=== PATIENT | female | born 1985 | race Caucasian/White ===

== ENCOUNTER 2021-06-29 19:50 | Emergency (ER) | payer MEDICAID, SELFPAY ==
--- NOTE | 2021-06-29 19:34 | ECG_ITS ---
APPROVED REPORT Exam: Resting ECG HR:111 bpm ECG Measurements Heart Rate 111 AXES TX 199 P 56 QRSd 82 QRS 64 QT 314 T 71 QTc 380 Conclusion SINUS TACHYCARDIA LOW QRS VOLTAGE IN PRECORDIAL LEADS [QRS DEFLECTION < 1.0 mV IN CHEST LEADS] NONSPECIFIC T-WAVE ABNORMALITY ABNORMAL RHYTHM ECG UNCONFIRMED REPORT Electronically signed by : Stef Hong MD 07/01/2021 07:54:34
[2021-06-29 19:39] VITALS: BP 124/81; PULSE 113; RESP 20; TEMP 36.8; O2SAT 95; BMI 41.5
[2021-06-29 19:59] LABS: Microscopic, Urine URINE MICROSCOPIC (MICROSCOPIC)
[2021-06-29 20:00] VITALS: BP 113/79; PULSE 107; RESP 17; O2SAT 94
[2021-06-29 20:02] LABS: Appearance,Urine CLOUDY (Clear); Bilirubin,Urine Negative (Negative); Blood, Urine Negative (Negative); Color,Urine DK YELLOW (Yellow); Glucose,Urine (UA) Negative (Negative); Ketones,Urine Negative (Negative); Leukocyte Esterase,Urine 1+ (Negative); Nitrate,Urine POSITIVE (Negative); PH,Urine 5.5 (5.0-8.5); Protein,Urine Negative (Negative); Specific Gravity, Urine >= 1.030 (1.005-1.030)
[2021-06-29 20:05] VITALS: BMI 46.5
[2021-06-29 20:12] LABS: Amphetamine/Metha Screen,Urine Negative ng/ml (<1000)
[2021-06-29 20:13] LABS: Barbiturates Screen,Urine Negative ng/ml (<200)
[2021-06-29 20:14] LABS: Benzodiazepines Screen,Urine Negative ng/ml (<200); Cannabinoid Screen,Urine Negative ng/ml (<50)
[2021-06-29 20:15] LABS: Cocaine Screen,Urine Negative ng/ml (<300)
[2021-06-29 20:16] LABS: Methadone Screen,Urine Negative ng/ml (<300); Opiate Screen,Urine Negative ng/ml (<300)
[2021-06-29 20:17] LABS: Phencyclidine Screen,Urine Negative ng/ml (<25)
[2021-06-29 20:30] VITALS: BP 120/80; PULSE 100; RESP 16; O2SAT 94
--- NOTE | 2021-06-29 20:46 | XR_ITS ---
PROCEDURE INFORMATION: Exam: XR Chest Exam date and time: 06/29/2021 8:48 PM Age: 35 years old Clinical indication: Sternal or substernal pain; Additional info: Cp TECHNIQUE: Imaging protocol: XR of the chest. Views: 2 views. COMPARISON: No relevant prior studies available. FINDINGS: Lungs: Hazy interstitial opacities in both lungs could reflect interstitial edema versus interstitial pneumonia. Granulomatous change. Pleural spaces: Unremarkable. No pleural effusion. No pneumothorax. Heart/Mediastinum: Cardiomegaly. Bones/joints: Unremarkable. IMPRESSION: Interstitial opacities bilaterally could reflect edema versus pneumonia. Correlate clinically.
[2021-06-29 20:47] LABS: Coronavirus 19, PCR Not Detected (NotDetected); Influenza A, PCR Not Detected (NotDetected); Influenza B, PCR Not Detected (NotDetected)
[2021-06-29 20:54] LABS: Chloride 105 mmol/L (98-107); Sodium 138 mmol/L (136-145)
[2021-06-29 20:56] LABS: Basophils # 0.2 K/mm3 (0-0.2); Basophils % 2.4 % (0.1-2.0); Eosinophils # 0.2 K/mm3 (0.0-0.4); Eosinophils % 2.4 % (0.1-12.0); Hematocrit 44.1 % (37.0-47.0); Hemoglobin 14.9 g/dL (12.2-16.2); Lymphocytes # 2.6 K/mm3 (0.7-4.5); Lymphocytes % 26.8 % (10-50); Mean Corpuscular HGB Conc 33.8 g/dL (31.8-35.4); Mean Corpuscular Hemoglobin 31.2 pg (27.0-31.2); Mean Corpuscular Volume 92.3 fl (81-99); Mean Platelet Volume 10.2 fl (7.4-10.4); Monocytes # 0.5 K/mm3 (0.1-1.0); Monocytes % 5.4 % (1.7-9.3); Neutrophils # 6.1 K/mm3 (1.8-7.8); Platelet Count 277 K/mm3 (142-424); Red Blood Count 4.78 M/mm3 (4.20-5.40); Red Cell Distribution Width 13.8 % (11.5-17.5); White Blood Count 9.8 K/mm3 (4.8-10.8)
[2021-06-29 20:57] LABS: Blood Urea Nitrogen 10 mg/dl (7-17); Carbon Dioxide 24 mmol/L (22.0-30.0); Creatinine Clearance Estimated 144 mL/min (50-200); Estimated Glomerular Filt Rate 142 ml/min (>60); GFR (African American) 172 ML/MIN (>60)
[2021-06-29 20:58] LABS: Calcium 9.9 mg/dl (8.4-10.2); Glucose 186 mg/dl (74-100)
[2021-06-29 21:02] LABS: C-Reactive Protein 16.2 mg/L (0-4)
[2021-06-29 21:09] LABS: NT Pro Brain Natriuretic Pep. 19.8 pg/mL (0-125)
[2021-06-29 21:17] LABS: Troponin I < 0.01 ng/ml (0.00-0.034)
[2021-06-29 21:20] LABS: Bacteria,Urine 4+ /lpf
[2021-06-29 21:21] LABS: T4 (Thyroxine) 8.8 ug/dl (5.53-11.0)
[2021-06-29 21:31] VITALS: BP 119/91; PULSE 99; RESP 19; O2SAT 95
[2021-06-29 21:31] LABS: Erythrocyte Sedimentation Rate 28 mm/hr (0-20)
[2021-06-29 21:35] LABS: Thyroid Stimulating Hormone 0.18 uIU/mL (0.465-4.68)
[2021-06-29 21:43] LABS: Procalcitonin 0.052 ng/mL (0.0-2.0)
--- NOTE | 2021-06-29 22:02 | HMH.EDCP ---
ED Disposition Clinical Impression: Atypical chest pain UTI (urinary tract infection) Qualifiers: Urinary tract infection type: site unspecified Hematuria presence: without hematuria Qualified Code(s): N39.0 - Urinary tract infection, site not specified Disposition: Home, Self-Care Condition on Discharge: Good Instructions: DI for Atypical Chest Pain, DI for Urinary Tract Infection (UTI) Additional Instructions: fluids and use meds and see pcp for follow up Prescriptions: cephALEXin [cephALEXin 500mg capsule*] 500 mg PO TID #30 cap Transmission Status: Pending to [facility] Referrals: Provider,Referral, [Referring] - - Critical Care Critical Care Time: No Attestation: On 06/29/21, the high probability of a clinically significant, sudden or life threatening deterioration of the following system(s) required my full and direct attention, intervention and personal management. The time I documented below is in addition to time spent performing reported procedures but includes the following listed in this critical care notation. Medical Decision Making - Medical Records Medical records reviewed: Yes: I reviewed the patient's medical records. - Stephan Inquiry Pt receiving controlled substance: No Vital Signs: 06/29/21 19:39 06/29/21 20:00 06/29/21 20:30 Temperature 98.3 F Temperature Source Oral Pulse Rate 107 H 100 H Pulse Rate [Right] 113 H Respiratory Rate 20 17 16 Blood Pressure 113/79 120/80 Blood Pressure [Right Arm] 124/81 Blood Pressure Mean 89 89 Blood Pressure Mean [Right Arm] 95 02 Sat by Pulse Oximetry 95 94 L 94 L Oxygen Delivery Method Room Air 06/29/21 21:31 Temperature Temperature Source Pulse Rate 99 H Pulse Rate [Right] Respiratory Rate 19 Blood Pressure 119/91 H Blood Pressure [Right Arm] Blood Pressure Mean 99 Blood Pressure Mean [Right Arm] 02 Sat by Pulse Oximetry 95 Oxygen Delivery Method - Lab Data Lab results reviewed: Yes: I reviewed the patient's lab results. Lab Results 06/29/21 19:41: WBC 9.8, RBC 4.78, Hgb 14.9, Hct 44.1, MCV 92.3, MCH 31.2, MCHC 33.8, RDW 13.8, Plt Count 277, MPV 10.2, Neut % (Auto) 63.0, Lymph % (Auto) 26.8, [place] % (Auto) 5.4, Eos % (Auto) 2.4, Baso % (Auto) 2.4 H, Neut # (Auto) 6.1, Lymph # (Auto) 2.6, [place] # (Auto) 0.5, Eos # (Auto) 0.2, Baso # (Auto) 0.2, ESR 28 H 06/29/21 19:41: Sodium 138, Potassium 4.0, Chloride 105, Carbon Dioxide 24, Anion Gap 13.0, BUN 10, Creatinine 0.50 L, Estimated Creat Clear 144, Estimated GFR 142, Est GFR ( Amer) 172, Glucose 186 H, Calcium 9.9, Troponin I < 0.01, C-Reactive Protein 16.2 H, NT-Pro-B Natriuret Pep 19.8, Procalcitonin 0.052 06/29/21 19:41: TSH 0.18 L, Thyroxine (T4) 8.8 06/29/21 19:41: Amylase 55, Lipase 134 06/29/21 19:41: Total Bilirubin 0.6, Direct Bilirubin 0.1, Conjugated Bilirubin 0.0, Indirect Bilirubin 0.5, Unconjugated Bilirubin 0.4, AST 48 H, ALT 45, Alkaline Phosphatase 158 H, Total Protein 7.4, Albumin 4.1 06/29/21 19:56: Urine Color Dk yellow, Urine Appearance Cloudy, Urine pH 5.5, Ur Specific [place] >= 1.030, Urine Protein Negative, Urine Glucose (UA) Negative, Urine Ketones Negative, Urine Blood Negative, Urine Nitrate Positive, Urine Bilirubin Negative, Urine Urobilinogen 1.0, Ur Leukocyte Esterase 1+ A, Urine RBC None, Urine WBC 5-10, Ur Squamous Epith Cells 3-5, Urine Bacteria 4+ 06/29/21 19:56: Urine Opiates Screen Negative, Urine Methadone Screen Negative, Ur Barbituates Screen Negative, Ur Phencyclidine Scrn Negative, Ur Amphetamines Screen Negative, U Benzodiazepines Scrn Negative, Urine Cocaine Screen Negative, U Marijuana (THC) Screen Negative 06/29/21 19:56: Urine HCG, Qual Negative 06/29/21 20:42: SARS-CoV-2 (PCR) Not detected, Influenza A Untype (PCR) Not detected, Influenza Type B (PCR) Not detected Result diagrams: 06/29/21 19:41 06/29/21 19:41 Orders (Tests/Meds): ED MEDICATIONS Generic Name Dose Route Start Last Admin
--- NOTE | 2021-06-29 22:05 | CT_ITS ---
PROCEDURE INFORMATION: Exam: CT Abdomen And Pelvis With Contrast Exam date and time: 06/29/2021 10:44 PM Age: 35 years old Clinical indication: Abdominal pain; Generalized TECHNIQUE: Imaging protocol: Computed tomography of the abdomen and pelvis with contrast. Radiation optimization: All CT scans at this facility use at least one of these dose optimization techniques: automated exposure control; mA and/or kV adjustment per patient size (includes targeted exams where dose is matched to clinical indication); or iterative reconstruction. Contrast material: ISOVUE; Contrast volume: 75 ml; Contrast route: IV; COMPARISON: CR XR CHEST 2V 06/29/2021 8:48 PM FINDINGS: Liver: Normal. No mass. Gallbladder and bile ducts: Cholecystectomy. Pancreas: Normal. No ductal dilation. Spleen: Normal. No splenomegaly. Adrenal glands: Normal. No mass. Kidneys and ureters: Normal. No hydronephrosis. Stomach and bowel: Constipation. No colitis. No small bowel obstruction. Appendix: Appendix not seen but no secondary signs of appendicitis. Intraperitoneal space: Unremarkable. No free air. No significant fluid collection. Vasculature: Unremarkable. No abdominal aortic aneurysm. Lymph nodes: Unremarkable. No enlarged lymph nodes. Urinary bladder: Unremarkable as visualized. Reproductive: Unremarkable as visualized. Bones/joints: Unremarkable. No acute fracture. Soft tissues: Unremarkable. IMPRESSION: No acute findings.
[2021-06-29 22:15] LABS: Alanine Aminotransferase 45 U/L (12-78); Aspartate Amino Transferase 48 U/L (14-36); Bilirubin,Unconjugated 0.4 mg/dL (0.0-1.1)
[2021-06-29 22:16] LABS: Albumin Level 4.1 g/dl (3.5-5.0); Alkaline Phosphatase 158 U/L (38-126); Amylase 55 U/L (30-110); Bilirubin,Direct 0.1 mg/dl (0.0-0.4); Bilirubin,Indirect 0.5 mg/dL (0.0-0.9); Bilirubin,Total 0.6 mg/dl (0.2-1.3); Lipase 134 U/L (23-300); Total Protein,Serum 7.4 g/dl (6.3-8.2)
[2021-06-29 22:24] LABS: Urine Pregnancy, HCG Qual. Negative (Negative)
--- NOTE | 2021-06-29 22:29 | PC.NURSE ---
Pt resting in bed. No new needs.
[2021-06-29 23:38] LABS: Troponin I < 0.01 ng/ml (0.00-0.034)
--- NOTE | 2021-06-29 23:57 | PC.NURSE ---
Called [facility] to inform them pt was ready to return. They advised they would have to call [facility] to see if they had someone available to come pick her up.
[2021-06-30 00:22] VITALS: BP 124/81; PULSE 78; RESP 16; TEMP 37.1; O2SAT 98
== END 2021-06-30 00:24 | disposition home or self-care (01) ==
PROVIDERS: Emergency Provider Emergency Medicine; PCP Emergency Medicine
DX: R07.9 Chest pain, unspecified (principal); N39.0 Urinary tract infection, site not specified; Z79.899 Other long term (current) drug therapy
CPT/HCPCS: 71046; 74177; 80048; 80076; 80305; 81001; 81025; 82150; 83690; 83880; 84145; 84436; 84443; 84484; 85025; 85651; 86140; 87086; 87088; 87186; 93005; 96365; 96375; 99284; C9803; J0696; Q9967; U0003; U0005

== ENCOUNTER 2021-08-24 12:44 | Emergency (ER) | payer MEDICAID, SELFPAY ==
[2021-08-24 12:44] VITALS: BP 117/70; PULSE 125; RESP 20; O2SAT 94; BMI 38.7
--- NOTE | 2021-08-24 13:23 | XR_ITS ---
FINAL REPORT CLINICAL HISTORY: dizziness, smoker, no surgery COMPARISON: June 29, 2021 FINDINGS: Two views of the chest were obtained. The heart size and pulmonary vascularity are within normal limits. The mediastinum is normal. There are mild bibasilar opacities. There is no pneumothorax. The bony thorax is intact. IMPRESSION: Mild bibasilar opacities could represent atelectasis or pneumonia. Reviewed, Interpreted and Dictated by Mikel Garcia III, MD Transcribed by Rory Arnett Authenticated and [facility]
[2021-08-24 13:33] LABS: Basophils # 0.1 K/mm3 (0-0.2); Basophils % 1.6 % (0.1-2.0); Eosinophils # 0.2 K/mm3 (0.0-0.4); Eosinophils % 3.2 % (0.1-12.0); Hematocrit 48.1 % (37.0-47.0); Hemoglobin 16.1 g/dL (12.2-16.2); Lymphocytes # 1.5 K/mm3 (0.7-4.5); Lymphocytes % 18.9 % (10-50); Mean Corpuscular HGB Conc 33.4 g/dL (31.8-35.4); Mean Corpuscular Hemoglobin 31.1 pg (27.0-31.2); Mean Platelet Volume 9.8 fl (7.4-10.4); Monocytes # 0.4 K/mm3 (0.1-1.0); Monocytes % 4.7 % (1.7-9.3); Neutrophils # 5.5 K/mm3 (1.8-7.8); Neutrophils % 71.7 % (37.0-80.0); Platelet Count 272 K/mm3 (142-424); Red Blood Count 5.18 M/mm3 (4.20-5.40); Red Cell Distribution Width 13.5 % (11.5-17.5); White Blood Count 7.7 K/mm3 (4.8-10.8)
[2021-08-24 13:39] LABS: Anion Gap 17.8 mEq/L (5-15); Blood Urea Nitrogen 12 mg/dl (7-17); Calcium 9.8 mg/dl (8.4-10.2); Carbon Dioxide 21 mmol/L (22.0-30.0); Chloride 102 mmol/L (98-107); Creatinine Clearance Estimated 229 mL/min (50-200); Estimated Glomerular Filt Rate 115 ml/min (>60); GFR (African American) 139 ML/MIN (>60); Glucose 227 mg/dl (74-100); Potassium 3.8 mmoL/L (3.5-5.1); Sodium 137 mmol/L (136-145)
--- NOTE | 2021-08-24 13:52 | HMH.EDGENADL ---
ED Disposition Clinical Impression: Hyperglycemia Heat exhaustion Qualifiers: Encounter type: initial encounter Qualified Code(s): T67.5XXA - Heat exhaustion, unspecified, initial encounter Disposition: Home, Self-Care Condition on Discharge: Good Instructions: DI for Heat Exhaustion and Heat Stroke, DI for Hyperglycemia -- Adult Additional Instructions: Take metformin as prescribed for blood sugar. Rest and drink plenty of fluids for the next 2 days. Avoid heat exposure. Dr. Cole will see you on Saturday for follow-up. Prescriptions: Metformin HCl [Metformin HCl ER] 500 mg PO DAILY #30 tab Prescription Printed Referrals: Chavez Cole MD [Primary Care Provider] - - Critical Care Critical Care Time: No Attestation: On 08/24/21, the high probability of a clinically significant, sudden or life threatening deterioration of the following system(s) required my full and direct attention, intervention and personal management. The time I documented below is in addition to time spent performing reported procedures but includes the following listed in this critical care notation. Medical Decision Making - Stephan Inquiry Pt receiving controlled substance: No Vital Signs: 08/24/21 12:44 08/24/21 14:00 Temperature 98 F Temperature Source Oral Pulse Rate [Left Radial] 125 H Respiratory Rate 20 Blood Pressure [Right Arm] 117/70 Blood Pressure Mean [Right Arm] 85 Blood Pressure Source [Right Arm] Automatic Cuff Blood Pressure Position [Right Arm] Sitting 02 Sat by Pulse Oximetry 94 L Oxygen Delivery Method Room Air - Lab Data Lab Results 08/24/21 13:00: WBC 7.7, RBC 5.18, Hgb 16.1, Hct 48.1 H, MCV 93.0, MCH 31.1, MCHC 33.4, RDW 13.5, Plt Count 272, MPV 9.8, Neut % (Auto) 71.7, Lymph % (Auto) 18.9, [place] % (Auto) 4.7, Eos % (Auto) 3.2, Baso % (Auto) 1.6, Neut # (Auto) 5.5, Lymph # (Auto) 1.5, [place] # (Auto) 0.4, Eos # (Auto) 0.2, Baso # (Auto) 0.1 08/24/21 13:00: Sodium 137, Potassium 3.8, Chloride 102, Carbon Dioxide 21 L, Anion Gap 17.8 H, BUN 12, Creatinine 0.60, Estimated Creat Clear 229, Estimated GFR 115, Est GFR ( Amer) 139, Glucose 227 H, Calcium 9.8, Troponin I < 0.01 08/24/21 13:00: Hemoglobin A1c 6.0 Result diagrams: 08/24/21 13:00 08/24/21 13:00 Orders (Tests/Meds): ED MEDICATIONS Generic Name Dose Route Start Last Admin Trade Name Freq PRN Reason Stop Dose Admin Sodium Chloride 10 ml 08/24/21 13:23 Sodium Chloride 0.9% 10ml Flush Syringe IV 09/23/21 13:22 NEEDED PRN Maintain IV Site Discontinued Medications Generic Name Dose Route Start Last Admin Trade Name Freq PRN Reason Stop Dose Admin Sodium Chloride 1,000 ml 08/24/21 14:08 Sodium Chloride 0.9% 1000ml Bag IV 08/24/21 14:09 BOLUS ONE ORDERS Category Date Time Status XR chest 2V Stat Exams 08/24/21 13:23 Taken Troponin I Q3H Lab 08/24/21 16:30 Ordered Troponin I Q3H Lab 08/24/21 19:30 Ordered - Radiology Data #1 Image(s): Chest (Preliminary interpretation by me: No acute disease) Image Reviewed: Yes I reviewed the patient's radiology image - ECG Data Tracing #1 EKG interpreted by Srinath Muir MD: Rhythm: sinus tachycardia Rate: 110 [place]: normal Ectopy: none Conduction: normal ST Segment Changes: none T Wave Changes: Nonspecific Q Waves: none No evidence of acute ischemia or injury Prior electrocardiagrams reviewed. No significant change from prior tracings. - Physician Consults Physician Consulted: Kelsey - present Time: 14:19 Reason -: Pt condition Comment/Response: Discussed blood sugar. Hemoglobin A1c is pending. He requests starting patient on metformin 500 mg daily. Medical Decision Narrative: Discussed patient's blood sugar with her. She says she has been told she is diabetic, but is not on medications for diabetes. General Adult HPI - General Chief complaint: Dizziness Stated complaint: dizzy, overheated
[2021-08-24 13:54] LABS: Troponin I < 0.01 ng/ml (0.00-0.034)
[2021-08-24 14:00] VITALS: TEMP 36.6
--- NOTE | 2021-08-24 14:02 | ECG_ITS ---
APPROVED REPORT Exam: Resting ECG HR:110 bpm ECG Measurements Heart Rate 110 AXES CO 206 P 36 QRSd 90 QRS 27 QT 306 T 51 QTc 371 Conclusion SINUS TACHYCARDIA Left atrial abnormality NONSPECIFIC T-WAVE ABNORMALITY ABNORMAL RHYTHM ECG UNCONFIRMED REPORT Electronically signed by : Stef Hong MD 08/24/2021 17:38:23
--- NOTE | 2021-08-24 14:43 | PC.NURSE ---
PT EATING A DIABETIC TRAY WITH IV FLUIDS INFUSING
--- NOTE | 2021-08-24 14:54 | PC.NURSE ---
notified [facility] pt is ready for d/c
[2021-08-24 15:42] VITALS: BP 117/68; PULSE 72; RESP 20; TEMP 36.7; O2SAT 98
== END 2021-08-24 15:42 | disposition home or self-care (01) ==
PROVIDERS: Emergency Provider Emergency Medicine; PCP Emergency Medicine
DX: R73.9 Hyperglycemia, unspecified (principal); T67.5XXA Heat exhaustion, unspecified, initial encounter; Z79.899 Other long term (current) drug therapy
CPT/HCPCS: 71046; 80048; 83036; 84484; 85025; 93005; 99283

== ENCOUNTER 2022-09-27 05:25 | Emergency (ER) | payer MEDICAID, SELFPAY ==
[2022-09-27 05:25] VITALS: BP 110/70; PULSE 61; RESP 16; TEMP 36.5; O2SAT 95; BMI 40.3
--- NOTE | 2022-09-27 05:26 | XR_ITS ---
PROCEDURE INFORMATION: Exam: XR Chest Exam date and time: 09/27/2022 5:34 AM Age: 36 years old Clinical indication: Shortness of breath; Additional info: SOA TECHNIQUE: Imaging protocol: Radiologic exam of the chest. Views: 1 view. COMPARISON: CR XR CHEST 2V 08/24/2021 1:26 PM FINDINGS: Lungs: No focal airspace disease. Pleural spaces: Unremarkable. No pleural effusion. No pneumothorax. Heart/Mediastinum: Cardiomediastinal silhouette is within normal limits. Bones/joints: Unremarkable. IMPRESSION: No acute cardiopulmonary abnormality.
--- NOTE | 2022-09-27 05:28 | HMH.EDGENADL ---
Discharge Plan Disposition Patient Disposition: Home, Self-Care Condition: Good Prescriptions Prescriptions: No Action lorazepam [Ativan] 0.5 mg tablet 0.5 mg PO Q8H PRN (Reason: anxiety) Qty: 90 5RF levothyroxine 175 MCG tablet 175 mcg PO DAILY atorvastatin 10 MG tablet 10 mg PO HS hydralazine 25 MG tablet 25 mg PO TIDP PRN (Reason: Anxiety) haloperidol 10 MG tablet 10 mg PO TID albuterol sulfate 8.5 GM HFA aerosol inhaler 2 puff IH Q4HP PRN (Reason: soa) quetiapine 400 MG tablet extended release 24 hr 400 mg PO BID cephalexin 500 MG capsule 500 mg PO TID Qty: 30 0RF metformin 500 MG tablet extended release 24 hr 500 mg PO DAILY Qty: 30 0RF Referrals Follow up/Referrals: Chavez Cole MD [Primary Care Provider] - See instructions Activity Restrictions/Add. Instructions Additional Instructions/Restrictions: You were evaluated in the emergency department today. At this time, your labs, EKG, and chest x-ray are reassuring. I do not feel that the shortness of breath is related to your heart or lungs. Please follow-up closely with your primary care provider over the next 3 days. Continue taking your medications at home as prescribed. Return to the emergency department for any new or worsening symptoms. Clinical Impressions Clinical Impression: Shortness of breath Instructions Patient Instructions: DI for Shortness of Breath Discharge ED Provider: Linda Harris General Adult HPI General Chief complaint: Shortness of Breath/Dyspnea Stated complaint: Short of Breath Time Seen by Provider: 09/27/22 05:26 Mode of Arrival: EMS Source of Information: Patient Limitations: No Limitations Description of Symptoms (Recalled from ER Triage Doc. by RN): pt c/o SOA once she woke up from sleep History of Present Illness HPI narrative: This patient is a 36-year-old female who resides in [facility] with history of psychiatric disturbance, hypertension, hypothyroidism, obesity, asthma, and sleep apnea presenting to the emergency department for evaluation because she woke up short of breath. She woke up from her sleep feeling like she could not catch her breath. She states that she still feels a little bit like she cannot breathe. EMS was called to the scene for this. I received report from EMS that the patient had a reassuring twelve-lead EKG and reassuring vital signs. No increased work of breathing or adventitious lung sounds noted by EMS. They state that she has had good oxygen saturation on room air and no tachycardia since they picked her up. They note that she has a history of sleep apnea but does not wear CPAP. Patient denies any fevers, chills, chest pain, abdominal pain, nausea, vomiting, change in bowel movements, unilateral swelling, calf pain/tenderness, or other concerns. Related Data Home Medications Medication Instructions Recorded Confirmed albuterol sulfate 90 mcg/actuation 2 puff inhalation Q4HP PRN soa 06/29/21 06/29/21 aerosol inhaler atorvastatin 10 mg tablet 10 mg PO HS hld 06/29/21 06/29/21 haloperidol 10 mg tablet 10 mg PO TID psych 06/29/21 06/29/21 hydralazine 25 mg tablet 25 mg PO TIDP PRN Anxiety 06/29/21 06/29/21 levothyroxine 175 mcg tablet 175 mcg PO DAILY thyroid 06/29/21 06/29/21 quetiapine 400 mg tablet,extended 400 mg PO BID mood 06/29/21 06/29/21 release 24 hr Previous Rx's Medication Instructions Recorded cephalexin 500 mg capsule 500 mg PO TID #30 caps 06/29/21 metformin 500 mg tablet,extended 500 mg PO DAILY #30 tabs 08/24/21 release 24 hr lorazepam 0.5 mg tablet (Ativan) 0.5 mg PO Q8H PRN anxiety #90 tabs 08/28/22 Allergies Allergy/AdvReac Type Severity Reaction Status Date / Time No Known Allergies Allergy Unverified 12/28/20 16:27 [facility] Disclaimer: The information contained in this section may have been updated after the patient was seen, as this information can be updated by other users
--- NOTE | 2022-09-27 05:32 | ECG_ITS ---
APPROVED REPORT Exam: Resting ECG HR:91 bpm ECG Measurements Heart Rate 91 AXES [place] 122 P 236 QRSd 89 QRS 60 QT 384 T 54 QTc 433 Conclusion SINUS RHYTHM NONSPECIFIC T-WAVE ABNORMALITY BORDERLINE ECG UNCONFIRMED REPORT Electronically signed by : Stef Hong MD 09/27/2022 13:45:09
[2022-09-27 05:36] LABS: Basophils # 0.1 K/mm3 (0-0.2); Basophils % 1.2 % (0.1-2.0); Eosinophils # 0.3 K/mm3 (0.0-0.4); Eosinophils % 3.1 % (0.1-12.0); Hematocrit 41.7 % (37.0-47.0); Hemoglobin 13.9 g/dL (12.2-16.2); Lymphocytes # 3.6 K/mm3 (0.7-4.5); Lymphocytes % 34.6 % (10-50); Mean Corpuscular HGB Conc 33.3 g/dL (31.8-35.4); Mean Corpuscular Hemoglobin 29.9 pg (27.0-31.2); Mean Corpuscular Volume 89.7 fl (81-99); Mean Platelet Volume 9.6 fl (7.4-10.4); Monocytes # 0.4 K/mm3 (0.1-1.0); Monocytes % 4.3 % (1.7-9.3); Neutrophils # 5.9 K/mm3 (1.8-7.8); Neutrophils % 56.8 % (37.0-80.0); Platelet Count 308 K/mm3 (142-424); Red Blood Count 4.65 M/mm3 (4.20-5.40); Red Cell Distribution Width 13.5 % (11.5-17.5); White Blood Count 10.3 K/mm3 (4.8-10.8)
[2022-09-27 05:46] LABS: Chloride 104 mmol/L (98-107); Potassium 3.8 mmoL/L (3.5-5.1); Sodium 138 mmol/L (136-145)
[2022-09-27 05:49] LABS: Blood Urea Nitrogen 13 mg/dl (7-17); Creatinine Clearance Estimated 284 mL/min (50-200); Estimated Glomerular Filt Rate 141 ml/min (>60); GFR (African American) 171 ML/MIN (>60)
[2022-09-27 05:50] LABS: Anion Gap 14.8 mEq/L (5-15); Calcium 9.9 mg/dl (8.4-10.2); Carbon Dioxide 23 mmol/L (22.0-30.0); Glucose 114 mg/dl (74-100)
[2022-09-27 06:10] VITALS: BP 124/80; PULSE 87; RESP 16; TEMP 36.5; O2SAT 95
--- NOTE | 2022-09-27 06:13 | PC.NURSE ---
notified [facility] that pt is ready for discharge
--- NOTE | 2022-09-27 06:41 | PC.NURSE ---
called [facility] about pt [facility]. employees stated that they still have no transportation for the pt.
--- NOTE | 2022-09-27 07:13 | PC.NURSE ---
attempted to call [facility] for update. no answer
--- NOTE | 2022-09-27 07:14 | PC.NURSE ---
tonya valle called back, states someone from [facility] will be here around 8am.
== END 2022-09-27 07:29 | disposition home or self-care (01) ==
PROVIDERS: Emergency Provider Emergency Medicine; PCP Emergency Medicine
DX: R06.02 Shortness of breath (principal); J45.909 Unspecified asthma, uncomplicated; I10 Essential (primary) hypertension; E78.5 Hyperlipidemia, unspecified; E66.9 Obesity, unspecified
CPT/HCPCS: 71045; 80048; 85025; 93005; 99285